=== PATIENT | female | born 1950 | race Caucasian/White ===

== ENCOUNTER 2022-06-20 14:25 | Emergency (ER) | payer MEDICARE, BC ==
[~2022-06-20] VITALS: Ht 167.6 cm; Wt 68.4 kg
[2022-06-20 14:38] VITALS: BP 146/74
[2022-06-20 14:52] LABS: BASOPHILS % (AUTO) 0.8 % (0-1); EOSINOPHILS # (AUTO) 0.1 X10'3 (0-0.9); EOSINOPHILS % (AUTO) 2.6 % (0-6); HEMATOCRIT 40.9 % (35.0-45.0); HEMOGLOBIN 13.7 g/dl (12.0-16.0); LYMPHOCYTES # (AUTO) 1.4 X10'3 (1.1-4.8); LYMPHOCYTES % (AUTO) 26.8 % (21-51); MEAN CORPUSCULAR HEMOGLOBIN 31.1 PG (27.0-31.0); MEAN CORPUSCULAR HGB CONC 33.6 g/dL (33.0-36.5); MEAN CORPUSCULAR VOLUME 92.8 FL (78-98); MEAN PLATELET VOLUME 8.5 FL (7.4-10.4); MONOCYTES # (AUTO) 0.5 X10'3 (0-0.9); MONOCYTES % (AUTO) 9.1 % (2-12); NEUTROPHILS # (AUTO) 3.2 X10'3 (1.8-7.7); NEUTROPHILS % (AUTO) 60.7 % (42-75); PLATELET COUNT 159 X10'3 (140-440); RED BLOOD COUNT 4.41 X10'6 (4.20-5.60); RED CELL DISTRIBUTION WIDTH 12.9 % (11.5-14.5); WHITE BLOOD COUNT 5.3 X10'3 (4.5-11.0)
[2022-06-20 15:15] LABS: ALANINE AMINOTRANSFERASE 23 U/L (12-78); ALBUMIN/GLOBULIN RATIO 1.3 (1.1-1.5); ALKALINE PHOSPHATASE 102 IU/L (46-116); ANION GAP 4 (8-16); ASPARTATE AMINO TRANSFERASE 26 U/L (10-37); BILIRUBIN,TOTAL 0.3 MG/DL (0.1-1.0); BLOOD UREA NITROGEN 12 MG/DL (7-18); BUN/CREATININE RATIO 13.6 (6.6-38.0); CALCIUM 9.1 MG/DL (8.5-10.1); CHLORIDE 106 MMOL/L (99-107); CREATININE 0.88 MG/DL (0.40-0.90); GLUCOSE 73 MG/DL (70-104); POTASSIUM 3.8 MMOL/L (3.5-5.1); SODIUM 141 MMOL/L (135-145); TOTAL CARBON DIOXIDE 30.8 MMOL/L (24-32); TOTAL PROTEIN 7.1 G/DL (6.4-8.2); eGFR 63 ML/MIN
[2022-06-20 15:18] LABS: MAGNESIUM 1.8 MG/DL (1.5-2.4)
== END 2022-06-20 19:29 | disposition home or self-care (01) ==
LOC: ER 14:26
DX: R07.9 Chest pain, unspecified (principal); E78.00 Pure hypercholesterolemia, unspecified; E03.9 Hypothyroidism, unspecified; Z88.2 Allergy status to sulfonamides; Z91.040 Latex allergy status
CPT/HCPCS: 36415; 80053; 83735; 83880; 84484; 85025; 93005; 99284

== ENCOUNTER 2025-02-19 15:55 | Outpatient (CLI) | payer MEDICARE, BC ==
[2025-02-19 16:16] LABS: TOTAL HEMOGLOBIN 15.0 G/dl (12.0-16.0)
[2025-02-19] MEDS ORDERED: albuterol 2.5 MG/3 ML nebule NEB ONE (17:15)
[2025-02-19 17:17] VITALS: PULSE 76; RESP 15; O2SAT 96
--- NOTE | 2025-02-24 14:09 | PROCEDURE NOTE - Respiratory ---
Procedure Note-Respiratory Providers to CC Copies To 1: Jesus Alberto Orta MD Procedure Name: This is a pulmonary function test dated February 19, 2025. Hemoglobin measurement was done as part of the study. Spirometry measurements: Both the forced vital capacity and the FEV1 are normal. The FEV1 ratio is normal. The flow rates are excellent. Bronchodilator was not administered as part of the study. Lung volume measurements: All of the major lung volume determinations are normal. Lung diffusion measurement: The DLCO measurement is normal. Both the KVO and the alveolar volume measurements are normal. It is noted that the hemoglobin measurement is normal. Airway resistance measurement: The airway resistance is not elevated. Overall conclusion: Normal pulmonary function study. We have no previous studi es for comparison. LA HUTCHINSON MD Feb 24, 2025 14:09
== END 2025-02-19 23:59 | disposition home or self-care (01) ==
LOC: RT 15:55
PROVIDERS: ATTEND Internal Medicine Cardiovascular Disease
DX: R06.02 Shortness of breath (principal)
CPT/HCPCS: 85018; 94010; 94727; 94729; 94760